=== PATIENT | male | born 1975 | race Two or more races ===

== ENCOUNTER → 2024-12-08 | Outpatient (CLI) | payer BC, SELFPAY ==
[2024-12-08 08:40] LABS: Glucose Estimated Average 249 mg/dL (80-131); Hemoglobin A1C 10.3 % Hgb (4.8-6.0)
[2024-12-08 08:58] LABS: Cardiac Risk Estimate 3.8 RATIO (4.0-6.7); Cholesterol 146 mg/dL (132-200); HDL Cholesterol 38 mg/dL (40-60); LDL Cholesterol,Calculated 86 mg/dL (0-130); Triglycerides 110 mg/dL (30-150)
[2024-12-08 09:26] LABS: Creatinine MALB Rnd Ur 51 mg/dL (30-125); Microalbumin, Random Urine < 3 mg/L (0-300)
== END | disposition home or self-care (01) ==
LOC: COPL 07:35
PROVIDERS: PCP Registered Nurse Community Health; Referring Provider Registered Nurse Community Health; Visit Provider Registered Nurse Community Health
DX: E11.65 Type 2 diabetes mellitus with hyperglycemia (principal); E78.2 Mixed hyperlipidemia
CPT/HCPCS: 36415; 80061; 82043; 82570; 83036

== ENCOUNTER → 2025-03-08 | Outpatient (CLI) | payer BC, SELFPAY ==
[2025-03-08 08:53] LABS: Glucose Estimated Average 255 mg/dL (80-131); Hemoglobin A1C 10.5 % Hgb (4.8-6.0)
== END | disposition home or self-care (01) ==
LOC: COPL 07:18
PROVIDERS: PCP Registered Nurse Community Health; Referring Provider Registered Nurse Community Health; Visit Provider Registered Nurse Community Health
DX: E11.65 Type 2 diabetes mellitus with hyperglycemia (principal)
CPT/HCPCS: 36415; 83036

== ENCOUNTER → 2025-05-15 | Outpatient (CLI) | payer BC, SELFPAY ==
[2025-05-15 08:27] LABS: Glucose Estimated Average 223 mg/dL (80-131); Hemoglobin A1C 9.4 % Hgb (4.8-6.0)
[2025-05-15 08:40] LABS: Alanine Aminotransferase 33 U/L (10-49); Albumin, Serum 4.3 gm/dL (3.5-5.0); Albumin/Globulin Ratio 1.5 (1.2-2.2); Alkaline Phosphatase 60 U/L (46-116); Anion Gap 10 (7-16); Aspartate Amino Transferase 20 U/L (0-34); BUN/Creatinine Ratio 18 Ratio (12-20); Bilirubin,Total 0.7 mg/dL (0.3-1.2); Blood Urea Nitrogen 18 mg/dL (9-23); Calcium 9.3 mg/dL (8.3-10.6); Calcium (Corrected) 9.3 mg/dL (8.5-10.1); Carbon Dioxide 26.9 mMol/L (20.0-31.0); Cardiac Risk Estimate 3.9 RATIO (4.0-6.7); Chloride 105 mMol/L (98-107); Cholesterol 144 mg/dL (132-200); Creatinine (Component) 1.0 mg/dL (0.6-1.3); Globulin 2.8 gm/dL (2.3-3.5); Glucose 196 mg/dL (74-106); HDL Cholesterol 37 mg/dL (40-60); LDL Cholesterol,Calculated 85 mg/dL (0-130); Osmolality,Calculated 290 (275-295); Potassium 4.4 mMol/L (3.4-5.1); Sodium 142 mMol/L (136-145); Total Protein 7.1 gm/dL (5.7-8.2); Triglycerides 111 mg/dL (30-150); eGFR > 60 See Note
[2025-05-15 08:53] LABS: Basophils # (Auto) 0.0 Thou/mm3 (0.0-0.2); Basophils % (Auto) 0 % (0-2.5); Eosinophils # (Auto) 0.1 Thou/mm3 (0.0-0.5); Eosinophils % (Auto) 3 % (0-10); Hematocrit 45.1 % (41.0-53.0); Hemoglobin 15.8 g/dL (13.5-16.0); Immature Granulocytes Auto 0.00 Thou/mm3 (0.00-0.00); Lymphocytes # (Auto) 1.4 Thou/mm3 (1.0-4.8); Lymphocytes % (Auto) 31 % (10-50); Mean Corpuscular HGB Conc 35.0 g/dl (31.0-37.0); Mean Corpuscular Hemoglobin 31.5 pg (25.0-35.0); Mean Corpuscular Volume 90 fL (80-100); Monocytes # (Auto) 0.5 Thou/mm3 (0.0-0.8); Monocytes % (Auto) 10 % (0-12); Neutrophils # (Auto) 2.6 Thou/mm3 (1.8-7.7); Neutrophils % (Auto) 56 % (37-80); Nucleated Red Blood Cell # 0.00 Thou/mm3 (0.00-0.00); Nucleated Red Blood Cell % 0 /100 WBC (0); Platelet Count 178 Thou/mm3 (140-440); RDW Standard Deviation 42.9 fL (35.1-43.9); Red Blood Count 5.01 Miln/mm3 (4.50-5.90); White Blood Count 4.6 Thou/mm3 (3.8-10.6)
[2025-05-15 09:47] LABS: Creatinine MALB Rnd Ur 54 mg/dL (30-125); Microalbumin, Random Urine < 3 mg/L (0-300)
== END | disposition home or self-care (01) ==
LOC: COPL 07:23
PROVIDERS: PCP Registered Nurse Community Health; Referring Provider Registered Nurse Community Health; Visit Provider Registered Nurse Community Health
DX: E11.65 Type 2 diabetes mellitus with hyperglycemia (principal); E78.2 Mixed hyperlipidemia; I10 Essential (primary) hypertension
CPT/HCPCS: 36415; 80053; 80061; 82043; 82570; 83036; 85025

== ENCOUNTER → 2025-05-19 | Outpatient (CLI) | payer BC, SELFPAY ==
--- NOTE | 2025-05-19 08:11 | XR_ITS ---
Examination: Thoracic spine 3 views Technique one AP lateral coned lateral upper dorsal spine 3 views Date and time: May 19, 2025 0828 hours INDICATION: Upper back pain beginning 5 months ago. FINDINGS: Upper thoracic levoscoliosis 12 degrees, lower thoracic dextroscoliosis 12 degrees No thoracic fracture Mild diffuse thoracic disc narrowing IMPRESSION: Mild diffuse thoracic degenerative disc disease
== END | disposition home or self-care (01) ==
LOC: CDIM 08:05
PROVIDERS: PCP Registered Nurse Community Health; Referring Provider Registered Nurse Community Health; Visit Provider Registered Nurse Community Health
DX: M51.34 Other intervertebral disc degeneration, thoracic region (principal)
CPT/HCPCS: 72072

== ENCOUNTER → 2025-07-10 | Outpatient (CLI) | payer BC, SELFPAY ==
[2025-07-10 08:44] LABS: Glucose Estimated Average 226 mg/dL (80-131); Hemoglobin A1C 9.5 % Hgb (4.8-6.0)
== END | disposition home or self-care (01) ==
LOC: COPL 07:05
PROVIDERS: PCP Registered Nurse Community Health; Referring Provider Registered Nurse Community Health; Visit Provider Registered Nurse Community Health
DX: E11.65 Type 2 diabetes mellitus with hyperglycemia (principal)
CPT/HCPCS: 36415; 83036

== ENCOUNTER 2025-09-14 10:26 | Emergency (ER) | payer BC, SELFPAY ==
--- NOTE | 2025-09-14 10:30 | EKG_ITS ---
[facility] Test Date: 2025-09-14 Pat Name: AILEEN VALADEZ Department: Room: - Gender: Male [employer]: : 1975 Requested By: Baldo Ring Order Number: [id number] Reading MD: Baldo Ring Measurements Intervals [place] Rate: 84 P: 30 MD: 145 QRS: 8 QRSD: 88 T: 27 QT: 335 QTc: 397 Interpretive Statements SINUS RHYTHM LOW QRS VOLTAGE IN PRECORDIAL LEADS [QRS DEFLECTION < 1.0 mV IN CHEST LEADS] Compared to ECG 05/17/2021 13:36:36 Low QRS voltage now present /store/[id number].pdf
[2025-09-14 10:36] VITALS: BP 135/83; PULSE 82; RESP 18; TEMP 36.6; O2SAT 98; BMI 35.3
--- NOTE | 2025-09-14 10:37 | XR_ITS ---
EXAMINATION: PA lateral chest 2 views TECHNIQUE: Upright PA lateral chest 2 views Date and time: September 14, 2025 1044 hours, comparison June 30, 2023 INDICATION: Chest pain shortness of breath today FINDINGS: Normal heart size No interval pneumonia or pulmonary edema. Moderate thoracic spondylosis IMPRESSION: No interval pneumonia or pulmonary edema
--- NOTE | 2025-09-14 10:38 | PD.EDRME ---
Rapid Medical Screening Exam RME Arrival date/time: 09/14/25 10:26 49-year-old male presents to the Emergency Department today for complaints of chest pain and left arm pain since yesterday Chief Complaint: Chest Pain Time Seen by Provider: 09/14/25 10:34 Vital signs: Vital Signs Temperature 97.8 F 09/14/25 10:36 Pulse Rate 82 09/14/25 10:36 Respiratory Rate 18 09/14/25 10:36 Blood Pressure 135/83 H 09/14/25 10:36 Pulse Oximetry (%) 98 09/14/25 10:36 Oxygen Delivery Method Room Air 09/14/25 10:36 Vital signs reviewed by provider: Yes Exam: On exam patient well-appearing does not appear ill or toxic no acute distress Clinical Impression: Labs imaging ordered as well as EKG
[2025-09-14 11:19] LABS: Collection Type, Urine Clean Catch
[2025-09-14 11:22] LABS: Basophils # (Auto) 0.0 Thou/mm3 (0.0-0.2); Basophils % (Auto) 0 % (0-2.5); Eosinophils # (Auto) 0.1 Thou/mm3 (0.0-0.5); Eosinophils % (Auto) 2 % (0-10); Hematocrit 47.2 % (41.0-53.0); Hemoglobin 16.3 g/dL (13.5-16.0); Immature Granulocytes Auto 0.01 Thou/mm3 (0.00-0.00); Lymphocytes # (Auto) 1.4 Thou/mm3 (1.0-4.8); Lymphocytes % (Auto) 25 % (10-50); Mean Corpuscular HGB Conc 34.5 g/dl (31.0-37.0); Mean Corpuscular Hemoglobin 31.8 pg (25.0-35.0); Mean Corpuscular Volume 92 fL (80-100); Monocytes # (Auto) 0.5 Thou/mm3 (0.0-0.8); Monocytes % (Auto) 9 % (0-12); Neutrophils # (Auto) 3.6 Thou/mm3 (1.8-7.7); Neutrophils % (Auto) 65 % (37-80); Nucleated Red Blood Cell # 0.00 Thou/mm3 (0.00-0.00); Nucleated Red Blood Cell % 0 /100 WBC (0); Platelet Count 227 Thou/mm3 (140-440); RDW Standard Deviation 45.8 fL (35.1-43.9); Red Blood Count 5.12 Miln/mm3 (4.50-5.90); White Blood Count 5.6 Thou/mm3 (3.8-10.6)
[2025-09-14 11:31] LABS: Amphetamine/Methamp Scrn,U Negative (Negative); Barbiturate Screen,Urine Negative (Negative); Benzodiazepines Screen,Urine Negative (Negative); Benzoylecgonine Screen, Ur Negative (Negative); Fentanyl Screen,Urine Negative (Negative); Opiate Screen,Urine Negative (Negative); THC Screen,Urine Negative (Negative)
[2025-09-14 11:41] LABS: INR 1.0 (0.9-1.3); Partial Thromboplastin Time 25.7 Seconds (22.0-36.0); Prothrombin Time 10.8 Seconds (9.0-12.2)
[2025-09-14 11:41] LABS: Bilirubin,Urine Negative (Negative); Blood,Urine Negative (Negative); Clarity,Urine Clear (Clear/Hazy); Color,Urine Lt-Yellow (Lt Yel-Yel); Culture Indicated,Urine Not Indicated; Glucose, Urine 4+ (Negative); Ketones,Urine Negative (Negative); Leukocyte Esterase,Urine Negative (Negative); Nitrite,Urine Negative (Negative); PH,Urine 7.0 (5.0-7.0); Protein,Urine Negative (Neg - Trace); RBC,Urine 2 /hpf (0-3); Specific Gravity,Urine 1.038 (1.001-1.035); Squamous Epithelial Cell,Urine 3 /hpf (0-5); Urobilinogen,Urine Negative mg/dL (0.0-1.0); WBC,Urine 2 /hpf (0-5)
[2025-09-14 11:43] LABS: B-Type Natriuretic Peptide < 20 pg/mL (0-100)
[2025-09-14 11:44] LABS: Alanine Aminotransferase 32 U/L (10-49); Albumin, Serum 4.9 gm/dL (3.5-5.0); Albumin/Globulin Ratio 2.0 (1.2-2.2); Alkaline Phosphatase 59 U/L (46-116); Anion Gap 6 (7-16); Aspartate Amino Transferase 23 U/L (0-34); BUN/Creatinine Ratio 17 Ratio (12-20); Bilirubin,Total 0.7 mg/dL (0.3-1.2); Blood Urea Nitrogen 15 mg/dL (9-23); Calcium 9.4 mg/dL (8.3-10.6); Calcium (Corrected) 9.4 mg/dL (8.5-10.1); Carbon Dioxide 29.8 mMol/L (20.0-31.0); Chloride 106 mMol/L (98-107); Creatinine (Component) 0.9 mg/dL (0.6-1.3); Estimated Creatinine Clearance 125.6 mL/min (>60); Globulin 2.4 gm/dL (2.3-3.5); Glucose 144 mg/dL (74-106); Lipase 47 U/L (12-53); Magnesium 2.2 mg/dL (1.6-2.6); Osmolality,Calculated 286 (275-295); Potassium 4.2 mMol/L (3.4-5.1); Sodium 142 mMol/L (136-145); Total Protein 7.3 gm/dL (5.7-8.2); Troponin I < 0.002 ng/mL (0.0-0.045); eGFR > 60 See Note
--- NOTE | 2025-09-14 12:17 | EDNOTE_ITS ---
ED Chest Pain RME/HPI General Chief Complaint: Chest Pain Stated Complaint: LEFT CHEST PAIN/ARM/SIDE PAIN X 1 DAY Time Seen by Provider: 09/14/25 10:34 Arrival date/time: 09/14/25 10:26 49-year-old male patient with significant history of diabetes mellitus, came in for evaluation regarding left-sided chest pain, radiating to the arm, has been ongoing since yesterday severity of symptoms mild. It was worse yesterday but today is less and tolerable. Patient denies any shortness of breath denies any cough denies any fever denies any trauma to the chest denies any other complaints patient is ambulatory. RME / HPI RME / HPI narrative: 09/14/25 10:26 49-year-old male presents to the Emergency Department today for complaints of chest pain and left arm pain since yesterday Exam: On exam patient well-appearing does not appear ill or toxic no acute distress Impression: Labs imaging ordered as well as EKG Related Data Home Medications ?Medication ?Instructions ?Recorded ?Confirmed albuterol sulfate 90 mcg/actuation 2 puff inhalation Q 6H PRN Wheezing 10/19/14 05/17/21 aerosol inhaler #0 inhalations canagliflozin 150 mg-metformin 1 tab PO BID 09/27/19 0 05/17/21 1,000 mg tablet (Invokamet) doxycycline hyclate 100 mg capsule 100 mg PO BID 05/1705/17/21 fluticasone propionate 50 1 spray intranasal QDAY 05/0205/17/21 mcg/actuation nasal spray,suspension glimepiride 4 mg tablet 4 mg PO BID 05/17/21 1 lisinopril 10 mg tablet 10 mg PO QDAY 05/17/2105/17 loratadine 10 mg tablet 10 mg PO QDAY 05/17/2105/17 Previous Rx's ?Medication ?Instructions ?Recorded meloxicam 7.5 mg tablet 7.5 mg PO QDAY #10 tabs 01/22 Allergies Allergy/AdvReac Type Severity Reaction Status Date / Time milk Allergy Unknown LACTOSE Verified 09/14/25 10:27 INTOL Review of Systems Review of Systems Narrative Review of Systems: Review of system reviewed and within normal limits except mentioned in HPI ED Exam Narrative Physical exam: VITAL SIGNS: Reviewed. GENERAL APPEARANCE: Alert and interactive, follows commands, no acute distress, HEAD AND FACE: Non-traumatic. ENT: PERRL, pink conjunctivitis, eyelid no trauma, Mucous membrane moist. NECK: Supple, nontender, no nuchal rigidity. CHEST: No tenderness, no crepitus, no paradoxical movement, no retractions. LUNGS: Clear, well ventilated, symmetric, no rales, no wheezing, no ronchi, no stridor, good breath sounds bilaterally. HEART: Regular rate, regular rhythm, no murmur, no gallops. ABDOMEN: Soft, positive bowel sounds, nondistended, no guarding, nontender, no rebound, no masses, RECTAL: Deferred. GENITAL: Deferred. NEUROLOGICAL: Gross motor function intact sensory function intact, Appropriate for age. MUSCULOSKELETAL: low back nontender, full range of motion. EXTREMITIES: Nontender, full range of motion. SKIN: Color pink, dry, no rash, no lacerations, no abrasions, no contusions. LYMPHATICS: Deferred. Course Quality Measures none Orders Category Date Time Status EKG (ED ONLY) *Do not use* NOW Care 09/14/25 10:30 Completed EKG (ED Only) Stat Exams 09/14/25 10:30 Draft XR chest 2V Stat Exams 09/14/25 10:37 Completed B-Type Natriuretic Peptide Stat Lab 09/14/25 11:08 Completed CBC Stat Lab 09/14/25 11:08 Completed Comprehensive Metabolic Panel Stat Lab 09/14/25 11:08 Completed Drug Screen,Urine Stat Lab 09/14/25 11:09 Completed Lipase Stat Lab 09/14/25 11:08 Completed Magnesium Stat Lab 09/14/25 11:08 Completed Partial Thromboplastin Time Stat Lab 09/14/25 11:08 Completed Prothrombin Time with INR Stat Lab 09/14/25 11:08 Completed Troponin I Stat Lab 09/14/25 11:08 Completed Urinalysis, C/S if Indicated Stat Lab 09/14/25 11:09 Completed Vital Signs Vital signs: Vital Signs Temperature 97.8 F 09/14/25 10:36 Pulse Rate 82 09/14/25 10:36 Respiratory Rate 18 09/14/25 10:36 Blood Pressure 135/83 H 09/14/25 10:36 Pulse Oximetry (%) 98 09/14/25 10:36 Oxygen Delivery Method Room Air 09/14/25 10:36 Chest Pain [facility] Narrative [facility] Narrative:: 49-year-old male patient with significant history of diabetes mellitus, came in for evaluation regarding left-sided chest pain, radiating to the arm, has been ongoing since yesterday severity of symptoms mild. It was worse yesterday but today is less and tolerable. Patient denies any shortness of breath denies any cough denies any fever denies any trauma to the chest denies any other complaints patient is ambulatory. Patient's cardiac workup including troponin all came back normal urinalysis unremarkable I personally reviewed and interpreted the x-ray of this patient. There is no acute abnormalities found, no infiltrates no pneumothorax no hemothorax normal chest x-ray. Review of other structures was without significant abnormal findings also. I additionally reviewed the radiologist report and agree with the interpretation. EKG showed normal sinus rhythm, no ST segment elevation or depression noted. Results discussed with the patient and family. Patient was advised to closely follow-up with PCP or return to [facility] room for worsening of chest pain. Repeat troponin is not needed at this time patient is having chest pain since yesterday. Prior to discharge patient's chest pain told me that it is almost gone and tolerable. Patient data External records reviewed:: None Clinical information provided by:: patient Social determinants that could affect healthcare access:: none Patient has the following chronic illnesses:: Diabetes mellitus hypertension How is presenting disease/condition affected by chronic disease/condition?: exacerbated by Evaluation data The following diagnostics were reviewed and interpreted by me:: lab results, radiology exam(s) and EKG tracing(s) Lab and/or radiology exams considered but not ordered:: None Interpretation Summary: See [facility] Medications / Prescriptions Medications or Prescriptions considered but not ordered:: None Medication administrations:: None Consultations Consultation(s) initiated? (list below): No Diagnosis Chest Pain Differential Diagnosis: pneumothorax and stable angina Most likely diagnosis given after review of the tests above:: Chest pain, muscular Admission Indicated Admission indicated?: not indicated Admission Request Was there a request for admission?: No Disposition Plan Disposition Plan: Discharge Discharge Attestation Discharge Attestation: The patient and all family members were given an opportunity to ask questions and understood the discharge instructions. Discharge instructions specifically effects, indications for sooner follow up or return to the emergency department, and the expected course of current diagnosis. Patient condition: Stable Discharge Plan Plan Patient Disposition: HOME (Self Care) Discharge Disposition comment: Stable Prescriptions/Referrals Prescriptions/Med Rec: No Action albuterol sulfate 90 mcg/actuation Hfa Aerosol Inhaler 2 puff INHALATION Q6H PRN (Reason: Wheezing) Qty: 0 doxycycline hyclate 100 mg Capsule 100 mg PO BID lisinopril 10 mg Tablet 10 mg PO QDAY glimepiride 4 mg Tablet 4 mg PO BID fluticasone propionate 50 mcg/actuation [place],Suspension 1 spray INTRANASAL QDAY loratadine 10 mg Tablet 10 mg PO QDAY Invokamet 150-1,000 mg Tablet 1 tab PO BID meloxicam 7.5 mg tablet 7.5 mg PO QDAY Qty: 10 0RF Referrals: Deisy Guzman FNP [Primary Care Provider] - In 1 week Problem List Clinical Impression: Muscular chest pain Patient/Caregiver Discharge Instructions Discharge Activity: activity as tolerated Education Materials: ED Chest Pain, Noncardiac Additional Instructions: Thank you for the opportunity for serving you today. You are stable for discharged . You are advised to: Follow-up with your PCP in 1 to 2 days Return to ED for worsening of symptoms Increase oral fluids Take [id number] Tylenol or Motrin as needed for pain Print Language: Angolan Stand Alone Forms: [employer] Award Info., Work/School Release, Patient Portal Info Letter JOHNATHON/LASHONDA Supervising Physician [facility] Supervising Physician: MD Vanessa
== END 2025-09-14 12:27 | disposition home or self-care (01) ==
PROVIDERS: Emergency Provider Nurse Practitioner Primary Care; PCP Registered Nurse Community Health
DX: R07.9 Chest pain, unspecified (principal); E11.9 Type 2 diabetes mellitus without complications
CPT/HCPCS: 36415; 71046; 80053; 80307; 81001; 83690; 83735; 83880; 84484; 85025; 85610; 85730; 93005; 99283